=== PATIENT | female | born 1970 | race Two or more races ===

== ENCOUNTER 2024-03-23 09:55 | Emergency (ER) | payer OTHER ==
[~2024-03-23] VITALS: Ht 167.6 cm; Wt 72.7 kg
[2024-03-23 11:13] VITALS: BP 150/92; PULSE 106; RESP 18; TEMP 98; O2SAT 95
[2024-03-23] MEDS: IBUPROFEN 800 MG TAB PO ONE (11:23)
[2024-03-23] MEDS ORDERED: IBUP-1456 PO (12:04)
[2024-03-23] MEDS ORDERED: METH-1182 PO (12:04)
[2024-03-23] MEDS ORDERED: CEPH500C PO (12:04)
== END 2024-03-23 12:11 | disposition home or self-care (01) ==
LOC: ER 09:55 → EDBD 09:55 → ER 12:09
DX: S16.1XXA Strain of muscle, fascia and tendon at neck level, initial encounter (principal); S29.012A Strain of muscle and tendon of back wall of thorax, initial encounter; Z88.0 Allergy status to penicillin; V43.52XA Car driver injured in collision with other type car in traffic accident, initial encounter; Y93.89 Activity, other specified; Y92.89 Other specified places as the place of occurrence of the external cause; Y99.8 Other external cause status
CPT/HCPCS: 72040; 72100